=== PATIENT | male | born 1980 | race Caucasian/White ===

== ENCOUNTER 2023-01-26 03:08 | Emergency (ER) | payer MEDICAID ==
[~2023-01-26] VITALS: Ht 193 cm; Wt 111.8 kg
[2023-01-26 03:51] LABS: Basophils # (auto) 0 10 ^3/uL (0-0.2); Basophils % (auto) 0.4 % (0.0-2.0); Eosinophils # (auto) 0.8 10 ^3/uL (0-0.8); Eosinophils % (auto) 7.3 % (0.0-7.0); Hematocrit 42.9 % (41.0-53.0); Hemoglobin 15.1 g/dL (13.5-17.5); Lymphocytes # (auto) 3.4 10 ^3/uL (0.4-5.4); Lymphocytes % (auto) 31.5 % (10.0-50.0); Mean Corpuscular Hemoglobin 33.3 pg (28.0-32.0); Mean Corpuscular Hgb Conc. 35.2 g/dL (32.0-36.0); Mean Corpuscular Volume 94.5 fL (80.0-100.0); Monocytes # (auto) 0.8 10 ^3/uL (0-1.3); Monocytes % (auto) 7.8 % (0.0-12.0); Neutrophils # (auto) 5.7 10 ^3/uL (1.6-8.6); Red Blood Cells 4.55 10^6/uL (4.5-5.90); White Blood Cell 10.8 10^3/uL (4.4-10.8)
[2023-01-26 03:58] LABS: Albumin 3.4 g/dL (3.4-5.0); Calcium 8.4 mg/dL (8.5-10.1); Potassium 4.1 mmol/L (3.5-5.1)
[2023-01-26 04:02] LABS: BUN/Creatinine Ratio 16.4 (10.0-20.0); Bilirubin, Total 0.4 mg/dL (0.2-1.0); Total Protein 6.1 g/dL (6.4-8.2)
[2023-01-26] MEDS ORDERED: BACDST PO (07:18)
[2023-01-26 07:33] VITALS: BP 134/52
== END 2023-01-26 07:19 | disposition home or self-care (01) ==
LOC: ER 03:08
DX: J40 Bronchitis, not specified as acute or chronic (principal); F17.210 Nicotine dependence, cigarettes, uncomplicated
CPT/HCPCS: 36415; 71045; 80053; 84484; 85025; 93005

== ENCOUNTER 2024-03-13 16:27 | Inpatient (IN) | payer MEDICAID ==
[~2024-03-13] VITALS: Ht 188 cm; Wt 100.4 kg
[~2024-03-13 16:27] MED LIST: BACDST PO
[2024-03-13] MEDS: MAGNESIUM SULFATE 1GM/100ML 100 ML IV SCH (16:30)
[2024-03-13] MEDS: IPRATROPIUM BROM 0.5 MG/2.5ML INH SOL HHN ONE (16:44)
[2024-03-13] MEDS: ALBUTEROL SULF 2.5 MG/0.5ML(0.5%) NEB SOLN HHN ONE (16:44)
[2024-03-13] MEDS: methylPREDNISolone SOD SUCC 125 MG/2 ML VL IV ONE (16:45)
[2024-03-13 17:22] LABS: Hematocrit 41.4 % (41.0-53.0); Hemoglobin 14.4 g/dL (13.5-17.5); Mean Corpuscular Hgb Conc. 34.9 g/dL (32.0-36.0); Mean Corpuscular Volume 94.7 fL (80.0-100.0); Red Blood Cells 4.38 10^6/uL (4.5-5.90); Red Cell Distribution Width 13.1 % (11.8-14.3)
[2024-03-13 17:33] LABS: Band Neutrophils % (manual) 0; Basophils % (manual) 0 (0.0-2.0); Blast Cells 0; Chloride 108 mmol/L (98-107); Metamyelocytes % 0; Myelocytes % 0; Potassium 3.6 mmol/L (3.5-5.1); Promyelocytes % 0; Reactive Lymphocytes 0; Sodium 142 mmol/L (136-145)
[2024-03-13 17:34] LABS: Anion Gap 8 (5-15); Calcium 8.9 mg/dL (8.7-10.4); Carbon Dioxide 26 mmol/L (20-30)
[2024-03-13 17:39] LABS: BUN/Creatinine Ratio 14.5 (10.0-20.0); Blood Urea Nitrogen 16 mg/dL (9-23); Glucose 109 mg/dL (74-106)
[2024-03-13 18:03] LABS: Eosinophils % (manual) 17 (0-7); Lymphocytes % (manual) 23 (10.0-50.0); Monocytes % (manual) 5 (0-12); Platelet Estimate Adequate
[2024-03-13 18:33] VITALS: PULSE 80; RESP 16; O2SAT 98
[2024-03-13] MEDS ORDERED: DOCUSATE SOD 100 MG CAP PO PRN (19:15)
[2024-03-13] MEDS ORDERED: ACETAMINOPHEN 325 MG TAB PO PRN (19:15)
[2024-03-13] MEDS ORDERED: ONDANSETRON HCL 4 MG/2 ML VIAL IV PRN (19:15)
[2024-03-13 19:30] VITALS: PULSE 84; RESP 14; O2SAT 98
[2024-03-13] MEDS: ALBUTEROL SULF 2.5 MG/0.5ML(0.5%) NEB SOLN NEB SCH (20:17)
[2024-03-13] MEDS: ALBUTEROL SULF 2.5 MG/0.5ML(0.5%) NEB SOLN ONE (20:18)
[2024-03-13] MEDS: IPRATROPIUM BROM 0.5 MG/2.5ML INH SOL ONE (20:18)
[2024-03-13] MEDS: IPRATROPIUM BROM 0.5 MG/2.5ML INH SOL NEB SCH (20:18)
[2024-03-13] MEDS: methylPREDNISolone SOD SUCC 125 MG/2 ML VL IV SCH (20:20)
[2024-03-13 20:27] VITALS: BP 125/75; PULSE 80; RESP 16; TEMP 98.7; O2SAT 97
[2024-03-13] MEDS: SODIUM CHLOR 0.9% PF (SALINE LOCK) 10ML VIAL/SYR IV SCH (22:03)
[2024-03-14] VITALS (18 sets, daily range): BP systolic 104–162; BP diastolic 63–108; PULSE 69–104; RESP 16–20; TEMP 97.5–98.4; O2SAT 94–99
[2024-03-14] MEDS: ALBUTEROL SULF 2.5 MG/0.5ML(0.5%) NEB SOLN NEB SCH (00:35)
[2024-03-14] MEDS: IPRATROPIUM BROM 0.5 MG/2.5ML INH SOL NEB SCH (00:36)
[2024-03-14 08:13] LABS: Basophils # (auto) 0.1 10 ^3/uL (0-0.2); Basophils % (auto) 0.5 % (0.0-2.0); Eosinophils # (auto) 0 10 ^3/uL (0-0.8); Hematocrit 47.5 % (41.0-53.0); Hemoglobin 16.3 g/dL (13.5-17.5); Lymphocytes # (auto) 0.7 10 ^3/uL (0.4-5.4); Lymphocytes % (auto) 5.5 % (10.0-50.0); Mean Corpuscular Hemoglobin 32.8 pg (28.0-32.0); Mean Corpuscular Hgb Conc. 34.3 g/dL (32.0-36.0); Mean Corpuscular Volume 95.6 fL (80.0-100.0); Monocytes # (auto) 0.2 10 ^3/uL (0-1.3); Monocytes % (auto) 1.4 % (0.0-12.0); Neutrophils # (auto) 12.6 10 ^3/uL (1.6-8.6); Neutrophils % (auto) 92.6 % (37.0-80.0); Red Blood Cells 4.97 10^6/uL (4.5-5.90); Red Cell Distribution Width 13.3 % (11.8-14.3); White Blood Cell 13.6 10^3/uL (4.4-10.8)
[2024-03-14 08:32] LABS: Alanine Aminotransferase 43 U/L (7-40); Albumin 4.5 g/dL (3.2-4.8); Alkaline Phosphatase 40 U/L (46-116); Anion Gap 8 (5-15); Aspartate Aminotransferase 30 U/L (13-40); BUN/Creatinine Ratio 13.6 (10.0-20.0); Blood Urea Nitrogen 14 mg/dL (9-23); Calcium 9.8 mg/dL (8.7-10.4); Carbon Dioxide 28 mmol/L (20-30); Chloride 103 mmol/L (98-107); Glucose 166 mg/dL (74-106); Magnesium 2.4 mg/dL (1.6-2.6); Potassium 4.1 mmol/L (3.5-5.1); Sodium 139 mmol/L (136-145)
[2024-03-14 08:33] LABS: Bilirubin, Total 0.8 mg/dL (0.2-1.0); Total Protein 7.2 g/dL (5.7-8.2)
[2024-03-14] MEDS: ENOXAPARIN SOD 40 MG/0.4 ML SYRINGE SC SCH (09:35)
[2024-03-14] MEDS ORDERED: AZITHROMYCIN 500MG/ 250ML 250 ML IV ONE (13:30)
[2024-03-14 16:25] LABS: Free T3 3.25 pg/mL (2.3-4.2); T3 Total 1.12 ng/mL (0.60-1.81)
[2024-03-14 16:26] LABS: Free T4 (Free Thyroxine) 1.19 ng/dL (0.89-1.76)
[2024-03-14] MEDS: AZITHROMYCIN 500MG/ 250ML 250 ML IV SCH (21:47)
[2024-03-14] MEDS: methylPREDNISolone SOD SUCC 40 MG/ML VL IV SCH (21:50)
[2024-03-15] VITALS (12 sets, daily range): BP systolic 95–127; BP diastolic 49–56; PULSE 80–123; RESP 16–30; TEMP 97.4–98.3; O2SAT 95–100
[2024-03-15] MEDS: ALBUTEROL SULF 2.5 MG/0.5ML(0.5%) NEB SOLN ONE (06:03)
[2024-03-15] MEDS: LORazepam 2MG/ML-1ML VIAL ONE (06:06)
[2024-03-15] MEDS: LORazepam 2MG/ML-1ML VIAL IM PRN (06:07)
[2024-03-15] MEDS: methylPREDNISolone SOD SUCC 125 MG/2 ML VL ONE (06:08)
[2024-03-15] MEDS: HALOPERIDOL LACTATE 5 MG/ML INJ VIAL IV PRN (06:10)
[2024-03-15] MEDS: HALOPERIDOL LACTATE 5 MG/ML INJ VIAL ONE ×2 (06:10→06:20)
[2024-03-15] MEDS: methylPREDNISolone SOD SUCC 125 MG/2 ML VL IV ONE (06:15)
[2024-03-15] MEDS: ALBUTEROL SULF 2.5 MG/0.5ML(0.5%) NEB SOLN NEB ONE (06:30)
[2024-03-15 07:10] LABS: COVID19 ANTIGEN SOFIA FIA NEGATIVE (NEGATIVE); Rapid Influenza A Negative (Negative); Rapid Influenza B Negative (Negative)
[2024-03-15] MEDS ORDERED: ALBUTEROL SULF 2.5 MG/0.5ML(0.5%) NEB SOLN NEB PRN (21:30)
[2024-03-16] VITALS (19 sets, daily range): BP systolic 114–133; BP diastolic 56–64; PULSE 59–85; RESP 12–18; TEMP 97.5–98.3; O2SAT 92–100
[2024-03-16 02:02] LABS: Urine Bacteria None Seen /hpf (None Seen)
[2024-03-16 02:08] LABS: Urine Amorphous Crystal FEW /hpf (None Seen); Urine Blood Negative /uL (Negative); Urine Budding Yeast OCCASIONAL /hpf (None Seen); Urine Clarity Turbid (Clear); Urine Color Light-Yellow (Yellow); Urine Protein, UAD Negative (Negative); Urine Specific Gravity 1.023 (1.001-1.035); Urine Urobilinogen Normal (Negative); Urine WBC 2 /hpf (0 - 3)
[2024-03-16 02:22] LABS: Amphetamine Screen, Urine Pos (NEGATIVE); Barbiturate Scree,Urine Neg (NEGATIVE); Benzodiazephine Screen, Urine Neg (NEGATIVE)
[2024-03-16 02:23] LABS: Cannabinoid Screen, Urine Neg (NEGATIVE); Cocaine Screen, Urine Neg (NEGATIVE); Opiate Scree,Urine Neg (NEGATIVE); Phencyclidine Screen, Urine Neg (NEGATIVE)
[2024-03-16 11:13] LABS: Basophils # (auto) 0 10 ^3/uL (0-0.2); Basophils % (auto) 0.1 % (0.0-2.0); Eosinophils # (auto) 0 10 ^3/uL (0-0.8); Eosinophils % (auto) 0.2 % (0.0-7.0); Hematocrit 44.2 % (41.0-53.0); Hemoglobin 14.8 g/dL (13.5-17.5); Lymphocytes # (auto) 1.7 10 ^3/uL (0.4-5.4); Lymphocytes % (auto) 12.2 % (10.0-50.0); Mean Corpuscular Hemoglobin 32.3 pg (28.0-32.0); Mean Corpuscular Hgb Conc. 33.4 g/dL (32.0-36.0); Mean Corpuscular Volume 96.8 fL (80.0-100.0); Monocytes # (auto) 1.1 10 ^3/uL (0-1.3); Monocytes % (auto) 7.7 % (0.0-12.0); Neutrophils % (auto) 79.8 % (37.0-80.0); Red Blood Cells 4.56 10^6/uL (4.5-5.90); Red Cell Distribution Width 13.1 % (11.8-14.3); White Blood Cell 13.7 10^3/uL (4.4-10.8)
[2024-03-16 11:33] LABS: Alanine Aminotransferase 46 U/L (7-40); Albumin 3.8 g/dL (3.2-4.8); Alkaline Phosphatase 32 U/L (46-116); Anion Gap 6 (5-15); Aspartate Aminotransferase 18 U/L (13-40); BUN/Creatinine Ratio 16.2 (10.0-20.0); Blood Urea Nitrogen 18 mg/dL (9-23); Calcium 9.3 mg/dL (8.7-10.4); Carbon Dioxide 28 mmol/L (20-30); Chloride 103 mmol/L (98-107); Glucose 114 mg/dL (74-106); Potassium 4.2 mmol/L (3.5-5.1); Sodium 137 mmol/L (136-145); Total Protein 6.1 g/dL (5.7-8.2)
[2024-03-16] MEDS ORDERED: AZITTAB PO (11:59)
[2024-03-16] MEDS ORDERED: UMEC1AER IN (11:59)
[2024-03-16] MEDS ORDERED: ALBUAER3 IN (11:59)
[2024-03-16] MEDS ORDERED: PRED20TA2 PO (11:59)
[2024-03-17 06:22] LABS: Alanine Aminotransferase 54 U/L (7-40); Alkaline Phosphatase 39 U/L (46-116); Anion Gap 5 (5-15); Aspartate Aminotransferase 16 U/L (13-40); BUN/Creatinine Ratio 18.8 (10.0-20.0); Blood Urea Nitrogen 18 mg/dL (9-23); Calcium 9.3 mg/dL (8.7-10.4); Carbon Dioxide 28 mmol/L (20-30); Chloride 103 mmol/L (98-107); Glucose 129 mg/dL (74-106); Magnesium 2.2 mg/dL (1.6-2.6); Potassium 4.8 mmol/L (3.5-5.1); Sodium 136 mmol/L (136-145)
[2024-03-17 06:23] LABS: Albumin 3.9 g/dL (3.2-4.8); Basophils # (auto) 0 10 ^3/uL (0-0.2); Basophils % (auto) 0.1 % (0.0-2.0); Bilirubin, Total 0.7 mg/dL (0.2-1.0); Eosinophils # (auto) 0 10 ^3/uL (0-0.8); Eosinophils % (auto) 0.1 % (0.0-7.0); Hematocrit 46.5 % (41.0-53.0); Hemoglobin 16.3 g/dL (13.5-17.5); Lymphocytes % (auto) 10.3 % (10.0-50.0); Mean Corpuscular Hemoglobin 33.8 pg (28.0-32.0); Mean Corpuscular Volume 96.5 fL (80.0-100.0); Monocytes # (auto) 0.6 10 ^3/uL (0-1.3); Monocytes % (auto) 5.9 % (0.0-12.0); Neutrophils # (auto) 8.2 10 ^3/uL (1.6-8.6); Neutrophils % (auto) 83.6 % (37.0-80.0); Red Blood Cells 4.81 10^6/uL (4.5-5.90); Red Cell Distribution Width 13.1 % (11.8-14.3); Total Protein 6.7 g/dL (5.7-8.2); White Blood Cell 9.8 10^3/uL (4.4-10.8)
[2024-03-17 06:36] VITALS: PULSE 65; RESP 16; O2SAT 94
[2024-03-17 06:37] VITALS: O2SAT 94
[2024-03-17 06:46] VITALS: PULSE 75; RESP 16; O2SAT 98
[2024-03-17 08:00] VITALS: O2SAT 98
== END 2024-03-17 09:31 | disposition left against medical advice (07) | DRG 720 ==
LOC: ER 16:27 → OVERFLOW 19:05 → EAST 23:14 → OVERFLOW 23:20 → EAST 03-15 07:42 → TELE-EAST 03-15 23:35
PROVIDERS: ADMIT Internal Medicine Pulmonary Disease; ATTEND Internal Medicine Pulmonary Disease
DX: A41.9 Sepsis, unspecified organism (principal); J44.1 Chronic obstructive pulmonary disease with (acute) exacerbation; J45.901 Unspecified asthma with (acute) exacerbation; Z53.29 Procedure and treatment not carried out because of patient's decision for other reasons; Z20.822 Contact with and (suspected) exposure to COVID-19; E05.90 Thyrotoxicosis, unspecified without thyrotoxic crisis or storm; F17.210 Nicotine dependence, cigarettes, uncomplicated; F19.10 Other psychoactive substance abuse, uncomplicated; Z88.1 Allergy status to other antibiotic agents; Z91.199 Patient's noncompliance with other medical treatment and regimen due to unspecified reason; Z79.899 Other long term (current) drug therapy; F15.23 Other stimulant dependence with withdrawal
CPT/HCPCS: 36415; 36600; 71045; 76536; 80048; 80053; 80307; 81001; 82805; 83735; 84436; 84439; 84443; 84480; 84481; 85007; 85025; 85027; 87081; 87426; 87804; 94640; 94644; 96365; 96366; 96375; 99291; G0378

== ENCOUNTER 2024-03-29 23:59 | Emergency (ER) | payer MEDICAID ==
[~2024-03-29] VITALS: Ht 193 cm; Wt 100.0 kg
[~2024-03-29 23:59] MED LIST changes: +ALBUAER3 IN; +AZITTAB PO; +PRED20TA2 PO; +UMEC1AER IN
[2024-03-30 00:02] VITALS: BP 117/84; PULSE 95; RESP 24; O2SAT 98
[2024-03-30] MEDS ORDERED: ALBU108A5 IN (02:30)
[2024-03-30] MEDS ORDERED: BENZ100C97 PO (02:30)
== END 2024-03-30 04:14 | disposition home or self-care (01) ==
LOC: EDBD 23:59 → ER 23:59
DX: J45.901 Unspecified asthma with (acute) exacerbation (principal); R06.02 Shortness of breath; F15.10 Other stimulant abuse, uncomplicated; F17.210 Nicotine dependence, cigarettes, uncomplicated
CPT/HCPCS: 71250; 93005

== ENCOUNTER 2024-03-31 03:51 | Emergency (ER) | payer MEDICAID ==
[~2024-03-31] VITALS: Ht 188 cm; Wt 230.0 kg
[~2024-03-31 03:51] MED LIST changes: +ALBU108A5 IN; +BENZ100C97 PO
[2024-03-31] MEDS: ALBUTEROL SULF 2.5 MG/0.5ML(0.5%) NEB SOLN NEB ONE (05:14)
[2024-03-31] MEDS: SODIUM CHLORIDE 0.9% 1,000 ML IV ONE (05:47)
[2024-03-31 07:36] VITALS: BP 125/78; PULSE 64; RESP 16; TEMP 98.6; O2SAT 100
[2024-03-31] MEDS: methylPREDNISolone SOD SUCC 125 MG/2 ML VL IV ONE (07:45)
[2024-03-31] MEDS: MAGNESIUM SULFATE 1GM/100ML 100 ML IV SCH (07:45)
[2024-03-31] MEDS: ALBUTEROL SULF 2.5 MG/0.5ML(0.5%) NEB SOLN NEB PRN (08:23)
[2024-03-31 08:24] VITALS: RESP 16; O2SAT 98
== END 2024-03-31 08:18 | disposition left against medical advice (07) ==
LOC: EDBD 03:51 → ER 03:51
DX: J45.909 Unspecified asthma, uncomplicated (principal); F15.10 Other stimulant abuse, uncomplicated; F17.210 Nicotine dependence, cigarettes, uncomplicated
CPT/HCPCS: 93005; 94640; 99283; J2919; 94660